=== PATIENT | male | born 1970 | race Caucasian/White ===

== ENCOUNTER 2020-02-13 12:46 | Emergency (ER) | payer BC ==
[~2020-02-13] VITALS: Ht 167.6 cm; Wt 58.5 kg
[~2020-02-13 12:46] MED LIST: ACETAMINOPHEN-1 EAC1 PO; AMBIEN 5 MG TABL5 M1; AMOXICILLIN 50500 MG PO; ASPIR 8181 MG PO; AZOR 10-20 MG1 EACH PO; AZOR 10-40 MG1 EACH PO; BYSTOLIC 5 MG5 M1 PO; CARAFATE 1 GM TA1 G1 PO; CIPROFLOXIN HC2.5 ML OP; COZAAR 25 MG TA25 MG; COZAAR 50 MG TA50 M1 PO; DILANTIN100 MG PO; FLEXERIL PO; HYDROCODON-ACE1 EAC7 PO; IBUPROFEN 800800 MG PO; LISINOPRIL20 MG PO; NAPROSYN500 MG PO; NEURONTIN600 MG; NORCO 5-325 TA1 EACH PO; NORVASC 5 MG TAB5 MG PO; PERCOCET 5-3251 EACH PO; PERCOCET 7.5-31 EACH PO; PHENERGAN 25 MG25 M1 PO; VICODIN 5-5001 EACH PO; ZOFRAN ODT4 MG DISSOLVE
[2020-02-13] MEDS ORDERED: VERAPAMIL E.R240 M1 PO (12:54)
[2020-02-13] MEDS ORDERED: IMITREX 25 MG T25 M1 PO (12:55)
[2020-02-13] MEDS ORDERED: NAPROSYN500 MG PO (15:12)
[2020-02-13] MEDS ORDERED: NORCO 5-325 TA1 EAC2 PO (15:12)
[2020-02-13 15:21] VITALS: BP 165/65
== END 2020-02-13 15:22 | disposition home or self-care (01) ==
LOC: M.ERS 12:46
DX: M25.521 Pain in right elbow (principal); F17.210 Nicotine dependence, cigarettes, uncomplicated; Z88.5 Allergy status to narcotic agent; Z88.6 Allergy status to analgesic agent; Z91.030 Bee allergy status